=== PATIENT | female | born 1975 | race Caucasian/White ===

== ENCOUNTER 2017-10-11 11:25 | Inpatient (IN) ==
[2017-10-11] MEDS: LACTATED RINGERS 1,000 ML IV SCH ×3 (11:50→15:45)
[2017-10-11] MEDS ORDERED: FAMOTIDINE 20 MG/2 ML VIAL IV ONE (12:09)
[2017-10-11] MEDS ORDERED: CITRIC ACID/SODIUM CITRATE 30 ML UDCUP PO ONE (12:09)
[2017-10-11] MEDS ORDERED: ceFAZolin 3,000 MG in SYRINGE 1 EACH IV ONE (12:30)
[2017-10-11 12:47] LABS: Basophils % 0.3 % (0.0-0.8); Eosinophils # 0.1 10*3/uL (0.0-0.87); Eosinophils % 0.7 % (0.00-10.9); Hematocrit 34.9 VOL% (35.7-47.0); Hemoglobin 11.6 GM/DL (12.0-16.0); Immature Granulocytes % 0.3 %; Immature Granulocytes Absolute 0.02 #; Lymphocytes # 1.1 10*3/uL (1.4-4.0); Lymphocytes % 15.3 % (21.3-54.2); Mean Corpuscular HGB Conc 33.2 GM/DL (32-36); Mean Corpuscular Hemoglobin 30 PG (27-34); Mean Corpuscular Volume 89.9 FL (87-102); Mean Platelet Volume 11.1 FL (9.6-12.0); Monocytes # 0.3 10*3/uL (0.11-0.8); Monocytes % 4.2 % (1.7-12.7); Neutrophils # 5.6 10*3/uL (1.4-7.4); Neutrophils % 79.2 % (38.7-73.9); Platelet Count 172 T/CUMM (130-400); Red Blood Count 3.88 MC/CUMM (3.8-5.5); Red Cell Distribution Width 13.3 % (9.3-17.3); White Blood Count 7.1 T/CUMM (4-12)
[2017-10-11 12:58] LABS: INR 0.9; PT Patient Result 9.2 SECS; Partial Thromboplastin Time 26.6 SECS (0-40)
[2017-10-11 13:21] LABS: Alanine Aminotransferase 16 U/L (13-56); Alkaline Phosphatase 123 U/L (45-117); Aspartate Amino Transferase 14 U/L (0-37); Bilirubin,Total < 0.39 MG/DL (0.2-1.0); Blood Urea Nitrogen 10 MG/DL (7-18); Calcium 8.8 MG/DL (8.5-10.1); Glucose 88 MG/DL (74-106); Osmolality,Calculated 272.7 MOS/KG (273-304); Sodium 138 MMOL/L (136-145)
[2017-10-11] MEDS ORDERED: OXYTOCIN/LR 20 UNIT/1,000 ML BAG IV ONE (15:16)
[2017-10-11] MEDS ORDERED: MAGNESIUM HYDROXIDE SUSP 30 ML UDCUP PO PRN (15:16)
[2017-10-11] MEDS ORDERED: ONDANSETRON 4 MG/2 ML VIAL IV PRN (15:16)
[2017-10-11] MEDS ORDERED: RHO(D) IMMUNE GLOBULIN 300 MCG SYRINGE IM ONE (15:16)
[2017-10-11] MEDS ORDERED: ACETAMINOPHEN 325 MG TABLET PO PRN (15:16)
[2017-10-11] MEDS ORDERED: ceFAZolin 1,000 MG in SYRINGE 1 EACH IV SCH (15:30)
[2017-10-11] MEDS ORDERED: LACTATED RINGERS 1,000 ML IV SCH (15:30)
[2017-10-11] MEDS ORDERED: MORPHINE 10 MG/1 ML VIAL ONE (16:29)
[2017-10-11] MEDS ORDERED: TISSUE ADHESIVE 1 EACH APPLICATOR TOP ONE (16:56)
[2017-10-11] MEDS ORDERED: MORPHINE PCA 30 MG/30 ML SYRINGE IV ONE (17:20)
[2017-10-11] MEDS ORDERED: NALOXONE 0.4 MG/ML VIAL IV PRN (17:25)
[2017-10-11] MEDS: MORPHINE PCA 30 MG/30 ML SYRINGE IV SCH (17:41)
[2017-10-11] MEDS ORDERED: MIDAZOLAM 2 MG/2 ML VIAL ONE (17:48)
[2017-10-11] MEDS ORDERED: fentaNYL 100 MCG/2 ML VIAL ONE (17:48)
[2017-10-11] MEDS ORDERED: SUCCINYLCHOLINE 200 MG/10 ML VIAL ONE (17:49)
[2017-10-11] MEDS ORDERED: KETOROLAC 30 MG/1 ML VIAL ONE (17:49)
[2017-10-11] MEDS ORDERED: SEVOFLURANE 1 UNIT/15 MINUTE INH ONE (17:49)
[2017-10-11] MEDS ORDERED: PROPOFOL 200 MG/20 ML VIAL IV ONE (17:49)
[2017-10-11 17:51] LABS: Apearance,Urine CLEAR (Clear); Bilirubin,Urine Negative (Negative); Blood, Urine Negative (Negative); Glucose,Urine (UA) Negative (Negative); Ketones,Urine 80 mg/dL (Negative); Mucus,Urine Occasional /LPF (Occasional); Nitrite,Urine Negative (Negative); Protein,Urine Negative; RBC,Urine 1 /HPF (0-4); Squamous Epithelial Cell,Urine Occasional /HPF (0-10); Urine Color Straw (Yellow); Urine Specific Gravity 1.009 (1.001-1.035); Urine Urobilinogen < 2.0 EU/DL (0.2-1.0); WBC,Urine <1 /HPF (0-6)
[2017-10-11] MEDS ORDERED: ACETAMINOPHEN 1,000 MG/100 ML VIAL IV ONE (17:53)
[2017-10-12] MEDS: ceFAZolin 1,000 MG in SYRINGE 1 EACH IV SCH ×2 (00:19→08:23)
[2017-10-12] MEDS: DOCUSATE SODIUM 100 MG CAPSULE PO SCH ×3 (00:20→20:19)
[2017-10-12] MEDS: MORPHINE PCA 30 MG/30 ML SYRINGE IV SCH (03:43)
[2017-10-12] MEDS: SIMETHICONE CHEW 80 MG TABLET PO PRN (05:09)
[2017-10-12 05:12] LABS: Basophils % 0.3 % (0.0-0.8); Eosinophils % 0.4 % (0.00-10.9); Hematocrit 29.1 VOL% (35.7-47.0); Hemoglobin 9.7 GM/DL (12.0-16.0); Immature Granulocytes % 0.3 %; Immature Granulocytes Absolute 0.02 #; Lymphocytes # 1.1 10*3/uL (1.4-4.0); Lymphocytes % 16.4 % (21.3-54.2); Mean Corpuscular HGB Conc 33.3 GM/DL (32-36); Mean Corpuscular Hemoglobin 30 PG (27-34); Mean Corpuscular Volume 90.9 FL (87-102); Mean Platelet Volume 10.6 FL (9.6-12.0); Monocytes # 0.3 10*3/uL (0.11-0.8); Monocytes % 4.3 % (1.7-12.7); Neutrophils # 5.3 10*3/uL (1.4-7.4); Neutrophils % 78.3 % (38.7-73.9); Platelet Count 159 T/CUMM (130-400); Red Cell Distribution Width 13.4 % (9.3-17.3); White Blood Count 6.8 T/CUMM (4-12)
[2017-10-12] MEDS ORDERED: oxyCODONE/ACETAMINOPHEN 5-325 MG TABLET PO PRN (06:27)
[2017-10-12] MEDS: oxyCODONE/ACETAMINOPHEN 5-325 MG TABLET PO PRN ×3 (06:34→18:28)
[2017-10-12] MEDS: IBUPROFEN 800 MG TABLET PO PRN ×2 (06:34→18:23)
[2017-10-12] MEDS: MULTIVITAMIN (PRENATAL) TABLET PO SCH ×2 (09:34→17:22)
[2017-10-12] MEDS ORDERED: RHO(D) IMMUNE GLOBULIN 300 MCG SYRINGE IM ONE (17:26)
[2017-10-12] MEDS ORDERED: ALUMINUM/MAGNES/SIMETH MAX STR 30 ML UDCUP PO PRN (20:13)
[2017-10-13] MEDS: oxyCODONE/ACETAMINOPHEN 5-325 MG TABLET PO PRN ×2 (00:32→06:13)
[2017-10-13] MEDS: IBUPROFEN 800 MG TABLET PO PRN ×2 (00:36→06:12)
[2017-10-13] MEDS: MULTIVITAMIN (PRENATAL) TABLET PO SCH (09:36)
[2017-10-13] MEDS: SIMETHICONE CHEW 80 MG TABLET PO PRN (09:36)
[2017-10-13] MEDS: DOCUSATE SODIUM 100 MG CAPSULE PO SCH (09:40)
[2017-10-13 11:20] VITALS: BP 120/71
== END 2017-10-13 14:50 | disposition home or self-care (01) | DRG 766 ==
LOC: N.LDOUT 11:25 → N.LD 12:08 → N.OB 20:05
PROVIDERS: ADMIT Obstetrics & Gynecology; ATTEND Obstetrics & Gynecology
PROC: LDCSECT (ICD-10-PCS; 2017-10-11 12:55)

== ENCOUNTER 2020-03-09 00:34 | Inpatient (IN) ==
[2020-03-09] MEDS ORDERED: CITRIC ACID/SODIUM CITRATE 30 ML UDCUP PO ONE (00:54)
[2020-03-09] MEDS ORDERED: FAMOTIDINE 20 MG/2 ML VIAL IV ONE (00:54)
[2020-03-09] MEDS ORDERED: ceFAZolin 2,000 MG in PREMIX 1 EACH IV ONE (00:54)
[2020-03-09] MEDS ORDERED: LACTATED RINGERS 1,000 ML IV ONE ×2 (00:59→08:20)
[2020-03-09] MEDS ORDERED: LACTATED RINGERS 1,000 ML IV SCH ×2 (01:00→08:30)
[2020-03-09 01:15] LABS: Basophils % 0.4 % (0.0-0.8); Eosinophils # 0.1 10*3/uL (0.0-0.87); Eosinophils % 1.4 % (0.00-10.9); Hematocrit 36.8 VOL% (35.7-47.0); Hemoglobin 12.9 GM/DL (12.0-16.0); Immature Granulocytes % 0.3 %; Immature Granulocytes Absolute 0.02 #; Lymphocytes # 1.9 10*3/uL (1.4-4.0); Lymphocytes % 24.2 % (21.3-54.2); Mean Corpuscular HGB Conc 35.1 GM/DL (32-36); Mean Corpuscular Volume 89.1 FL (87-102); Mean Platelet Volume 10.6 FL (9.6-12.0); Monocytes % 4.8 % (1.7-12.7); Neutrophils % 68.9 % (38.7-73.9); Platelet Count 169 T/CUMM (130-400); Red Blood Count 4.13 MC/CUMM (3.8-5.5); Red Cell Distribution Width 12.8 % (9.3-17.3)
[2020-03-09 01:38] LABS: Bilirubin,Direct < 0.100 MG/DL (0.0-0.20); Uric Acid 4.5 MG/DL (2.6-6.0)
[2020-03-09 01:39] LABS: INR 0.9; PT Patient Result 9.4 SECS (9.8-11.9); Partial Thromboplastin Time 25.7 SECS (23.9-33.8)
[2020-03-09 01:42] LABS: Alanine Aminotransferase 12 U/L (13-56); Alkaline Phosphatase 80 U/L (45-117); Aspartate Amino Transferase 19 U/L (0-37); Bilirubin,Total < 0.39 MG/DL (0.2-1.0); Blood Urea Nitrogen 13 MG/DL (7-18); Calcium 8.7 MG/DL (8.5-10.1); Carbon Dioxide 23 MMOL/L (21-32); Estimated Glom Filtration Rate 127 ML/MIN; Glucose 96 MG/DL (74-106); Osmolality,Calculated 274.7 MOS/KG (273-304); Sodium 138 MMOL/L (136-145); Total Protein 6.5 G/DL (6.4-8.3)
[2020-03-09 02:01] LABS: Bilirubin,Urine Negative (Negative); Blood, Urine Negative (Negative); Glucose,Urine (UA) Negative (Negative); Ketones,Urine 20 mg/dL (Negative); Mucus,Urine Occasional /LPF (Occasional); Nitrite,Urine Negative (Negative); Protein,Urine Negative; RBC,Urine <1 /HPF (0-4); Squamous Epithelial Cell,Urine Occasional /HPF (0-10); Urine Appearance CLEAR (Clear); Urine Color Straw (Yellow); Urine Specific Gravity 1.008 (1.001-1.035); Urine Urobilinogen < 2.0 EU/DL (0.2-1.0); WBC,Urine <1 /HPF (0-6)
[2020-03-09] MEDS ORDERED: AMPICILLIN 2,000 MG VIAL ONE (05:22)
[2020-03-09] MEDS ORDERED: SODIUM CHLORIDE 0.9% 100 ML IV ONE (05:22)
[2020-03-09] MEDS ORDERED: AMPICILLIN INJ 2,000 MG in SODIUM CHLORIDE 0.9% 100 ML IV ONE (05:30)
[2020-03-09] MEDS ORDERED: fentaNYL 100 MCG/2 ML VIAL ONE (06:31)
[2020-03-09] MEDS ORDERED: KETOROLAC 30 MG/1 ML VIAL ONE (06:31)
[2020-03-09] MEDS ORDERED: BUPIVACAINE SPINAL 0.75% 2 ML AMP SPINAL ONE (06:31)
[2020-03-09] MEDS ORDERED: ONDANSETRON 4 MG/2 ML VIAL ONE (06:31)
[2020-03-09] MEDS ORDERED: MORPHINE 10 MG/10 ML VIAL ONE (06:31)
[2020-03-09] MEDS ORDERED: TRANEXAMIC ACID 1,000 MG/10 ML VIAL ONE (06:58)
[2020-03-09] MEDS ORDERED: miSOPROStoL 200 MCG TABLET ONE (06:58)
[2020-03-09] MEDS ORDERED: METHYLERGONOVINE 0.2 MG/1 ML AMP ONE (06:59)
[2020-03-09] MEDS ORDERED: OXYTOCIN/LR 20 UNIT/1,000 ML BAG IV ONE ×3 (06:59→08:23)
[2020-03-09] MEDS ORDERED: CARBOPROST TROMETHAMINE 250 MCG/ML AMP IM ONE (07:00)
[2020-03-09] MEDS ORDERED: PHENYLEPHRINE 1 MG/10 ML SYRINGE IV ONE ×2 (07:37→07:59)
[2020-03-09] MEDS ORDERED: GLYCOPYRROLATE 0.4 MG/2 ML VIAL ONE (07:37)
[2020-03-09 08:02] LABS: Cord Venous Blood HCO3 22.3 MMOL/L
[2020-03-09 08:03] LABS: Cord Arterial Blood HCO3 26.1 MMOL/L
[2020-03-09] MEDS ORDERED: RHO(D) IMMUNE GLOBULIN 300 MCG SYRINGE IM ONE (08:23)
[2020-03-09] MEDS ORDERED: SIMETHICONE CHEW 80 MG TABLET PO PRN (08:23)
[2020-03-09] MEDS ORDERED: ACETAMINOPHEN 325 MG TABLET PO PRN (08:23)
[2020-03-09] MEDS ORDERED: ONDANSETRON 4 MG/2 ML VIAL IV PRN (08:23)
[2020-03-09] MEDS ORDERED: ceFAZolin 1,000 MG in SYRINGE 1 EACH IV SCH (08:30)
[2020-03-09] MEDS ORDERED: HYDROmorphone 2 MG/1 ML VIAL IV PRN (08:37)
[2020-03-09] MEDS ORDERED: hydrOXYzine HCL 25 MG/1 ML VIAL IM PRN (08:37)
[2020-03-09] MEDS ORDERED: diphenhydrAMINE 50 MG/1 ML VIAL IV PRN (08:37)
[2020-03-09] MEDS: KETOROLAC 30 MG/1 ML VIAL IV SCH (14:09)
[2020-03-09] MEDS: ceFAZolin 1,000 MG in SYRINGE 1 EACH IV SCH ×2 (15:13→23:30)
[2020-03-09 15:45] LABS: Basophils % 0.4 % (0.0-0.8); Eosinophils % 0.2 % (0.00-10.9); Hematocrit 31.8 VOL% (35.7-47.0); Immature Granulocytes % 0.4 %; Immature Granulocytes Absolute 0.04 #; Lymphocytes # 1.2 10*3/uL (1.4-4.0); Lymphocytes % 10.6 % (21.3-54.2); Mean Corpuscular HGB Conc 34.6 GM/DL (32-36); Mean Corpuscular Volume 89.6 FL (87-102); Mean Platelet Volume 10.5 FL (9.6-12.0); Monocytes % 4.7 % (1.7-12.7); Neutrophils % 83.7 % (38.7-73.9); Platelet Count 159 T/CUMM (130-400); Red Blood Count 3.55 MC/CUMM (3.8-5.5); White Blood Count 10.9 T/CUMM (4-12)
[2020-03-10] MEDS: KETOROLAC 30 MG/1 ML VIAL IV SCH (00:49)
[2020-03-10] MEDS: DOCUSATE SODIUM 100 MG CAPSULE PO SCH ×4 (02:26→21:33)
[2020-03-10] MEDS: MULTIVITAMIN (PRENATAL) TABLET PO SCH ×2 (02:27→09:05)
[2020-03-10 06:12] LABS: Basophils % 0.4 % (0.0-0.8); Eosinophils # 0.1 10*3/uL (0.0-0.87); Eosinophils % 1.3 % (0.00-10.9); Hematocrit 30.7 VOL% (35.7-47.0); Hemoglobin 10.4 GM/DL (12.0-16.0); Immature Granulocytes % 0.3 %; Immature Granulocytes Absolute 0.02 #; Lymphocytes # 1.3 10*3/uL (1.4-4.0); Lymphocytes % 17.1 % (21.3-54.2); Mean Corpuscular HGB Conc 33.9 GM/DL (32-36); Mean Corpuscular Volume 91.4 FL (87-102); Mean Platelet Volume 10.8 FL (9.6-12.0); Monocytes % 4.9 % (1.7-12.7); Platelet Count 152 T/CUMM (130-400); Red Blood Count 3.36 MC/CUMM (3.8-5.5); Red Cell Distribution Width 13.2 % (9.3-17.3); White Blood Count 7.5 T/CUMM (4-12)
[2020-03-10] MEDS ORDERED: RHO(D) IMMUNE GLOBULIN 300 MCG SYRINGE IM ONE (08:45)
[2020-03-10] MEDS ORDERED: KETOROLAC 30 MG/1 ML VIAL IV ONE (09:09)
[2020-03-10] MEDS: IBUPROFEN 800 MG TABLET PO PRN ×2 (11:54→18:11)
[2020-03-10] MEDS: oxyCODONE/ACETAMINOPHEN 5-325 MG TABLET PO PRN ×3 (11:58→23:55)
[2020-03-10] MEDS: MAGNESIUM HYDROXIDE SUSP 30 ML UDCUP PO PRN ×2 (13:30→19:34)
[2020-03-10] MEDS ORDERED: IBUPROFEN 800 MG TABLET PO PRN (18:13)
[2020-03-11] MEDS: MULTIVITAMIN (PRENATAL) TABLET PO SCH (07:56)
[2020-03-11] MEDS: MAGNESIUM HYDROXIDE SUSP 30 ML UDCUP PO PRN (07:56)
[2020-03-11] MEDS: DOCUSATE SODIUM 100 MG CAPSULE PO SCH (07:56)
[2020-03-11 10:49] VITALS: BP 138/90
[2020-03-11] MEDS: IBUPROFEN 800 MG TABLET PO PRN (11:52)
[2020-03-11] MEDS: oxyCODONE/ACETAMINOPHEN 5-325 MG TABLET PO PRN (11:52)
== END 2020-03-11 13:00 | disposition home or self-care (01) | DRG 788 ==
LOC: N.LDOUT 00:34 → N.LD 00:37 → N.OB 11:47
PROVIDERS: ADMIT Obstetrics & Gynecology; ATTEND Obstetrics & Gynecology
PROC: LDCSECT (ICD-10-PCS; 2020-03-09 07:00)